=== PATIENT | male | born 1970 | race African-American/Black ===

== ENCOUNTER 2019-03-19 13:22 | Emergency (ER) | payer MEDICARE ==
[~2019-03-19] VITALS: Ht 154.9 cm; Wt 59.0 kg
[2019-03-19] MEDS ORDERED: IV NORMAL SALINE 1000ML BAG 1,000 ML IV ONE (14:15)
[2019-03-19] MEDS ORDERED: MECLIZINE HCL 12.5 MG TABLET. PO ONE (14:15)
--- NOTE | 2019-03-19 14:31 | RAD ---
PORTABLE CHEST 1V History: Dizziness. COMPARISON: None FINDINGS: The heart size is not enlarged. No evidence of pneumothorax. No evidence of pleural effusion. No evidence of infiltrate. Bones appear intact. IMPRESSION: No evidence of consolidating infiltrate. Electronically signed by: Nabeel Spencer MD (03/19/2019 2:28 PM) [id number]
--- NOTE | 2019-03-19 14:35 | PHYS DOC ---
Past Medical History Past Medical History: Hypertension, Other Additional Past Medical Histor: CP,MUCSLE SPASAMS,BACK PAIN Past Surgical History: Other Additional Past Surgical Histo: SURGERIES R/T CP. Alcohol Use: None Drug Use: None Adult General Chief Complaint Chief Complaint: DIZZY/LIGHT HEADED HPI HPI Patient is a 48 year old female with history of cerebral palsy, hypertension, who presents to the ED today complaining of dizziness and disorientation. Patient states he woke up from a nap this morning and felt he was disoriented and dizzy. States symptoms have subsided. Denies any chest pain or shortness of breath. Denies any cough or congestion. He states his back to his baseline. Review of Systems Review of Systems Constitutional: Denies fever or chills [] Eyes: Denies change in visual acuity, redness, or eye pain [] HENT: Denies nasal congestion or sore throat [] Respiratory: Denies cough or shortness of breath [] Cardiovascular: No additional information not addressed in HPI [] GI: Denies abdominal pain, nausea, vomiting, bloody stools or diarrhea [] : Denies dysuria or hematuria [] Musculoskeletal: Denies back pain or joint pain [] Integument: Denies rash or skin lesions [] Neurologic: Reports dizziness. Reports disorientation. Denies headache, focal weakness or sensory changes [] All other systems were reviewed and found to be within normal limits, except as documented in this note. Current Medications Current Medications Current Medications Medications (Trade) Dose Ordered Sig/Naa Start Time Stop Time Status Last Admin Dose Admin Meclizine HCl (Antivert) 25 mg 1X ONCE 03/19/19 14:15 03/19/19 14:16 DC 03/19/19 14:32 25 MG Potassium Chloride (Klor-Con) 40 meq 1X ONCE 03/19/19 16:15 03/19/19 16:16 DC Sodium Chloride 1,000 ml @ 1,000 mls/hr 1X ONCE 03/19/19 14:15 03/19/19 15:14 DC 03/19/19 14:32 1,000 MLS/HR Allergies Allergies Allergies Coded Allergies Type Severity Reaction Last Updated Verified No Known Drug Allergies 03/19/19 No Physical Exam Physical Exam Constitutional: Well developed, well nourished, no acute distress, non-toxic appearance. [] HENT: Normocephalic, atraumatic, bilateral external ears normal, oropharynx moist, no oral exudates, nose normal. [] Eyes: PERRLA, EOMI, conjunctiva normal, no discharge. [] Neck: Normal range of motion, no tenderness, supple, no stridor. [] Cardiovascular:Heart rate regular rhythm, no murmur [] Lungs & Thorax: Bilateral breath sounds clear to auscultation [] Abdomen: Bowel sounds normal, soft, no tenderness, no masses, no pulsatile masses. [] Skin: Warm, dry, no erythema, no rash. [] Back: No tenderness, no CVA tenderness. [] Extremities: No tenderness, no cyanosis, no clubbing, ROM intact, no edema. Lower extremity deformity consistent with cerebral palsy Neurologic: Alert and oriented X 4, normal motor function, normal sensory function, no focal deficits noted. Cranial nerves II through XII intact Psychologic: Affect normal, judgement normal, mood normal. Very pleasant Current Patient Data Vital Signs Vital Signs Date Time Temp Pulse Resp B/P (MAP) Pulse Ox O2 Delivery O2 Flow Rate FiO2 03/19/19 13:30 97.6 84 20 119/78 (92) 99 Room Air 97.6 Lab Values Laboratory Tests Test 03/19/19 14:35 03/19/19 15:25 White Blood Count 8.3 x10^3/uL (4.0-11.0) Red Blood Count 5.22 x10^6/uL (4.30-5.70) Hemoglobin 14.7 g/dL (13.0-17.5) Hematocrit 42.8 % (39.0-53.0) Mean Corpuscular Volume 82 fL (79-100) Mean Corpuscular Hemoglobin 28 pg (25-35) Mean Corpuscular Hemoglobin Concent 34 g/dL (31-37) Red Cell Distribution Width 12.4 % (11.5-14.5) Platelet Count 196 x10^3/uL (140-400) Neutrophils (%) (Auto) 87 % (31-73) H Lymphocytes (%) (Auto) 8 % (24-48) L Monocytes (%) (Auto) 4 % (0-9) Eosinophils (%) (Auto) 0 % (0-3) Basophils (%) (Auto) 0 % (0-3) Neutrophils # (Auto) 7.2 x10^3uL (1.8-7.7) Lymphocytes # (Auto) 0.7 x10^3/uL (1.0-4.8) L Monocytes # (Auto) 0.3 x10^3/uL (0.0-1.1) Eosinophils # (Auto) 0.0 x10^3/uL (0.0-0.7) Basophils # (Auto) 0.0 x10^3/uL (0.0-0.2) Segmented Neutrophils % 92 % (35-66) H Band Neutrophils % 3 % (0-9) Lymphocytes % 4 % (24-48) L Monocytes % 1 % (0-10) Toxic Granulation Slight Platelet Estimate Adequate (ADEQUATE) Sodium Level 144 mmol/L (136-145) Potassium Level 3.2 mmol/L (3.5-5.1) L Chloride Level 104 mmol/L (98-107) Carbon Dioxide Level 31 mmol/L (21-32) Anion Gap 9 (6-14) Blood Urea Nitrogen 20 mg/dL (8-26) Creatinine 1.5 mg/dL (0.7-1.3) H Estimated GFR (Cockcroft-Gault) 59.9 BUN/Creatinine Ratio 13 (6-20) Glucose Level 101 mg/dL (70-99) H Calcium Level 9.6 mg/dL (8.5-10.1) Magnesium Level 2.4 mg/dL (1.8-2.4) Total Bilirubin 0.6 mg/dL (0.2-1.0) Aspartate Amino Transferase (AST) 19 U/L (15-37) Alanine Aminotransferase (ALT) 25 U/L (16-63) Alkaline Phosphatase 93 U/L (46-116) Creatine Kinase 385 U/L (39-308) H Creatine Kinase MB (Mass) 1.7 ng/mL (0.0-3.6) Creatine Kinase MB Relative Index 0.4 % (0-4) Troponin I Quantitative < 0.017 ng/mL (0.000-0.055) IS-Ssk-X-Type Natriuretic Peptide 40 pg/mL (0-124) Total Protein 7.7 g/dL (6.4-8.2) Albumin 4.2 g/dL (3.4-5.0) Albumin/Globulin Ratio 1.2 (1.0-1.7) Lipase 161 U/L (73-393) Thyroid Stimulating Hormone (TSH) 0.343 uIU/mL (0.358-3.74) L Urine Collection Type Void Urine Color Yellow Urine Clarity Clear Urine pH 6.0 Urine Specific [place] 1.015 Urine Protein 30 mg/dL (NEG-TRACE) Urine Glucose (UA) Negative mg/dL (NEG) Urine Ketones (Stick) Negative mg/dL (NEG) Urine Blood Negative (NEG) Urine Nitrite Positive (NEG) Urine Bilirubin Negative (NEG) Urine Urobilinogen Dipstick 1.0 mg/dL (0.2 mg/dL) Urine Leukocyte Esterase Small (NEG) Urine RBC 0 /HPF (0-2) Urine WBC 20-40 /HPF (0-4) Urine Bacteria Many /HPF (0-FEW) Urine Opiates Screen Neg (NEG) Urine Methadone Screen Neg (NEG) Urine Barbiturates Neg (NEG) Urine Phencyclidine Screen Neg (NEG) Urine Amphetamine/Methamphetamine Neg (NEG) Urine Benzodiazepines Screen Neg (NEG) Urine Cocaine Screen Neg (NEG) Urine Cannabinoids Screen Neg (NEG) Urine Ethyl Alcohol Neg (NEG) Laboratory Tests 03/19/19 14:35 Laboratory Tests 03/19/19 14:35 EKG EKG 15:[address] Mendoza sinus rhythm HR 93 no STEMI Radiology/Procedures Radiology/Procedures []PROCEDURE: PORTABLE CHEST 1V PORTABLE CHEST 1V History: Dizziness. COMPARISON: None FINDINGS: The heart size is not enlarged. No evidence of pneumothorax. No evidence of pleural effusion. No evidence of infiltrate. Bones appear intact. IMPRESSION: No evidence of consolidating infiltrate. Electronically signed by: Nabeel Spencer MD (03/19/2019 2:28 PM) [facility] DICTATED and SIGNED BY: NABEEL SPENCER MD DATE: 03/19/19 1428 PROCEDURE: CT HEAD WO CONTRAST CT HEAD WO CONTRAST Indication: Dizziness. Exposure: One or more of the following individualized dose reduction techniques were utilized for this examination: 1. Automated exposure control 2. Adjustment of the mA and/or kV according to patient size 3. Use of iterative reconstruction technique. Technique: Standard imaging without intravenous contrast. No prior study for comparison. No evidence of acute intracranial hemorrhage, mass effect, midline shift or abnormal extra-axial fluid collection. The ventricles and sulci are symmetric. Orbits appear unremarkable. No evidence of scalp swelling. Partially visualized sinuses are clear. No evidence of acute skull abnormality. IMPRESSION: No acute intracranial hemorrhage or mass effect. Consider MRI brain if symptoms persist. Electronically signed by: Nabeel Spencer MD (03/19/2019 3:12 PM) [facility] DICTATED and SIGNED BY: NABEEL SPENCER MD DATE: 03/19/19 1512 Course & Med Decision Making Course & Med Decision Making Pertinent Labs and Imaging studies reviewed. (See chart for details) This is a 48-year-old male patient with history of cerebral palsy presenting to the ED today complaining of dizziness and disorientation that occurred when he woke up from his nap. Patient is in the ED alert and oriented 4. He has no dizziness. EKG was negative, chest x-ray and CT of the head and negative. CBC with a normal WBC, CMP with creatinine of 1.5, BUN is normal Potassium 3.2 given oral Potassium replacement. 1 L of IV fluid. Urine analysis is noted for nitrites and small amount of leukocytes. Patient was given Cipro IV in the ED. I spoke to his PCP she requested we discharged patient with a prescription for antibiotics and she will follow-up with patient on Friday during his appointment. Patient is alert oriented in no distress. Very pleasant. Discharged to home. Family as well as patient given return precautions. Dragon Disclaimer Dragon Disclaimer This electronic medical record was generated, in whole or in part, using a voice recognition dictation system. Departure Departure Impression: Primary Impression: Urinary tract infection Additional Impressions: Renal insufficiency Dehydration Disposition: HOME, SELF-CARE Condition: STABLE Referrals: CHAPITO HERNANDEZ MD (PCP) Follow-up with Friday as scheduled Patient Instructions: Dehydration, Adult, Urinary Tract Infection Additional Instructions: You were evaluated in the emergency room and noted to have urinary tract infection. Please take the prescribed antibiotics until completed. Push fluids. Follow-up with Dr. Bowen next week on Friday as scheduled. Please return [facility] emergency room at any point symptoms worsen. Scripts Ciprofloxacin Hcl (CIPRO) 500 Mg Tablet 1 TAB PO BID, #14 TAB Prov: JOSÉ LUIS MCLEAN PHLEBOTOMY TECHNOLOGIST 03/19/19 Problem Qualifiers Primary Impression: Urinary tract infection Urinary tract infection type: site unspecified Hematuria presence: without hematuria Qualified Codes: N39.0 - Urinary tract infection, site not s JOSÉ LUIS Carson PHLEBOTOMY TECHNOLOGIST Mar 19, 2019 14:35
[2019-03-19 14:43] LABS: BASO % 0 % (0-3); EOS % 0 % (0-3); HEMATOCRIT 42.8 % (39.0-53.0); HEMOGLOBIN 14.7 g/dL (13.0-17.5); LYMPH # 0.7 x10^3/uL (1.0-4.8); LYMPH % 8 % (24-48); MEAN CORPUSCULAR HEMOGLOBIN 28 pg (25-35); MEAN CORPUSCULAR HGB CONC 34 g/dL (31-37); MEAN CORPUSCULAR VOLUME 82 fL (79-100); MONO # 0.3 x10^3/uL (0.0-1.1); MONO % 4 % (0-9); NEUT # 7.2 x10^3uL (1.8-7.7); NEUT % 87 % (31-73); PLATELET COUNT 196 x10^3/uL (140-400); RED BLOOD COUNT 5.22 x10^6/uL (4.30-5.70); RED CELL DISTRIBUTION WIDTH 12.4 % (11.5-14.5); WHITE BLOOD COUNT 8.3 x10^3/uL (4.0-11.0)
[2019-03-19 15:00] LABS: CALCIUM 9.6 mg/dL (8.5-10.1); CREATININE 1.5 mg/dL (0.7-1.3); GFR 59.9; POTASSIUM 3.2 mmol/L (3.5-5.1)
[2019-03-19 15:07] LABS: ALBUMIN 4.2 g/dL (3.4-5.0); ALBUMIN/GLOBULIN RATIO 1.2 (1.0-1.7); MAGNESIUM 2.4 mg/dL (1.8-2.4); TOTAL BILIRUBIN 0.6 mg/dL (0.2-1.0); TOTAL PROTEIN 7.7 g/dL (6.4-8.2)
--- NOTE | 2019-03-19 15:15 | RAD ---
CT HEAD WO CONTRAST Indication: Dizziness. Exposure: One or more of the following individualized dose reduction techniques were utilized for this examination: 1. Automated exposure control 2. Adjustment of the mA and/or kV according to patient size 3. Use of iterative reconstruction technique. Technique: Standard imaging without intravenous contrast. No prior study for comparison. No evidence of acute intracranial hemorrhage, mass effect, midline shift or abnormal extra-axial fluid collection. The ventricles and sulci are symmetric. Orbits appear unremarkable. No evidence of scalp swelling. Partially visualized sinuses are clear. No evidence of acute skull abnormality. IMPRESSION: No acute intracranial hemorrhage or mass effect. Consider MRI brain if symptoms persist. Electronically signed by: Nabeel Spencer MD (03/19/2019 3:12 PM) [facility]
--- NOTE | 2019-03-19 15:21 | EKG ---
[facility] [address] [place] [address] Test Date: 2019-03-19 Test Time: 13:42:59 Pat Name: MIKE SOLORZANO Department: Room: Gender: Clay Temperer: : 1970 Requested By: JOSÉ LUIS MCLEAN Order Number: [id number] Reading MD: Measurements Intervals [place] Rate: 87 P: 70 OK: 144 QRS: 66 QRSD: 80 T: 38 QT: 342 QTc: 417 Interpretive Statements SINUS RHYTHM NORMAL ECG RI6.01 Unconfirmed report No previous ECG available for comparison
[2019-03-19 15:23] LABS: % BANDS 3 % (0-9); % LYMPHS 4 % (24-48); % MONOS 1 % (0-10); % SEGS 92 % (35-66); PLT ESTIMATE ADEQUATE (ADEQUATE); TOXIC GRANULATION SLIGHT
[2019-03-19 15:33] LABS: BILIRUBIN,URINE NEGATIVE (NEG); CLARITY,URINE CLEAR; COLOR,URINE YELLOW; NITRITE,URINE POSITIVE (NEG); PROTEIN,URINE 30 mg/dL (NEG-TRACE)
[2019-03-19 15:36] LABS: AMPHETAMINE/METHAMPHETAMINE NEG (NEG); BARBITURATES NEG (NEG); BENZODIAZEPINES NEG (NEG); CANNABINOIDS NEG (NEG); COCAINE NEG (NEG); METHADONE NEG (NEG); OPIATES NEG (NEG); PHENCYCLIDINE NEG (NEG)
[2019-03-19 15:39] LABS: BACTERIA,URINE MANY /HPF (0-FEW); RBC,URINE 0 /HPF (0-2); WBC,URINE 20-40 /HPF (0-4)
[2019-03-19] MEDS ORDERED: POTASSIUM CHLORIDE 20 MEQ TABLET.ER. PO ONE (16:15)
[2019-03-19 16:30] VITALS: BP 125/74
[2019-03-19] MEDS ORDERED: CIPR500T94 PO (16:44)
== END 2019-03-19 17:05 | disposition home or self-care (01) ==
LOC: ER 13:22
DX: N28.9 Disorder of kidney and ureter, unspecified (principal); N39.0 Urinary tract infection, site not specified; I10 Essential (primary) hypertension; R42 Dizziness and giddiness; R41.0 Disorientation, unspecified; E86.0 Dehydration
CPT/HCPCS: 36415; 70450; 71045; 80053; 80307; 81001; 82553; 83690; 83735; 83880; 84443; 84484; 85007; 85025; 87086; 93005; 96360; 96361; 99285; J7030; J8597

== ENCOUNTER → 2021-05-22 | Outpatient (CLI) | payer MEDICARE ==
[~2021-05-22] MED LIST: CIPR500T94 PO
--- NOTE | 2021-05-22 13:15 | KCIC ---
EXAM: LEFT SHOULDER 3 VIEWS. HISTORY: Fall, pain. COMPARISON: None. FINDINGS: No fractures are identified. Glenohumeral osteoarthritis is mild. Acromioclavicular osteoar thritis is mild for patient age. Alignment is maintained. IMPRESSION: 1. Mild glenohumeral osteoarthritis. Electronically signed by: Austin Norton MD (05/22/2021 1:12 PM) [id number]
== END ==
LOC: KCIC 10:50
PROVIDERS: ATTEND Family Medicine
DX: M19.012 Primary osteoarthritis, left shoulder (principal)
CPT/HCPCS: 73030

== ENCOUNTER → 2021-06-15 | Outpatient (CLI) | payer MEDICARE ==
--- NOTE | 2021-06-15 13:42 | KCIC ---
Examination: MRI left shoulder without contrast HISTORY: History of acute shoulder pain COMPARISON: None available TECHNIQUE: Multiplanar, multisequence MR imaging of the left shoulder without contrast FINDINGS: The long head of the biceps tendon within the bicipital groove. The attachment of the long head the b iceps tendon to the superior labral anchor grossly appears intact. Moderate increased signal identifi ed in the subscapularis, supraspinatus tendon likely tendinosis. There is full-thickness tear of the supraspinatus tendon with mild tendon retraction up 2.5 cm. There is extension of fluid from the suba cromial subdeltoid bursa. The muscle bulk grossly appears unremarkable. The acromion is type II. Moderate degenerative changes recommend clinical exam. There is obscuration of fat in the rotator interval. Mild increased signal identified in the labrum likely mild degenerati ve changes. Moderate degenerative changes glenohumeral joint. IMPRESSION: 1.Full-thickness tear of the supraspinatus tendon with tendon retraction. 2. Moderate tendinosis of the rotator cuff. 3. Obscuration of fat in the rotator interval. Correlate for adhesive capsulitis. 4. Moderate degenerative changes acromioclavicular joint, glenohumeral joint. Electronically signed by: Urbano Greenberg MD (06/15/2021 1:40 PM) [id number]
== END ==
LOC: KCIC MRI 10:37
PROVIDERS: ATTEND Orthopaedic Surgery
DX: M75.122 Complete rotator cuff tear or rupture of left shoulder, not specified as traumatic (principal); M19.012 Primary osteoarthritis, left shoulder; M75.02 Adhesive capsulitis of left shoulder; M25.812 Other specified joint disorders, left shoulder
CPT/HCPCS: 73221